=== PATIENT | male | born 1990 | race Caucasian/White ===

== ENCOUNTER 2023-11-21 09:05 | Emergency (ER) | payer BC, SELFPAY ==
[2023-11-21 09:15] VITALS: BP 112/76; PULSE 71; RESP 14; TEMP 36.9; O2SAT 98; BMI 21.3
--- NOTE | 2023-11-21 09:32 | ED_ITS ---
HPI - General Adult General Time Seen by Provider: 09:32 Date Seen: 11/21/23 Chief complaint: Unspecified Complaint, Adult Stated complaint: Rabies shots Time Seen by Provider: 11/21/23 09:31 Source: patient, RN notes reviewed and old records reviewed Mode of arrival: ambulatory Limitations: no limitations History of Present Illness HPI narrative: 33-year-old male who comes in today with concern for possible bat exposure. Family found bat in the house, spouse has been getting rabies shots and patient is here for evaluation. He has no symptoms, no previous for evaluation for rabies and no prior injections. Related Data Home Medications Medication Instructions Recorded Confirmed No Known Home Medications 11/21/23 Allergies Allergy/AdvReac Type Severity Reaction Status Date / Time No Known Allergies Allergy Verified 09/17/23 09:48 [facility] Medical History (Updated 11/21/23 @ 09:42 by Chay Santizo MD) Cough ?R05.9 - Cough, unspecified (ICD-10) Social History Smoking Status: Never smoker Exam Narrative: Exam Narrative: General: well nourished , NAD Head: Atraumatic and normocephalic ENT: External ears and external nose are normal Eyes: Conjunctiva clear, pupils are equal reactive, external ocular motions are intact Neck: Full spontaneous range of motion of the neck Lungs: No respiratory distress Musculoskeletal: No tenderness or deformity Neurologic: No gross focal neurologic deficits Skin: No rashes Psych: Mood and affect are appropriate Const: Vital Signs, click to edit/add: Vital Signs - 24 hr 11/21/23 09:15 Temperature 98.5 F Pulse Rate [Pulse Oximeter] 71 Respiratory Rate 14 Blood Pressure [Ri ght Upper Arm] 112/76 Pulse Oximetry 98 Oxygen Delivery Me thod Room Air Course Course ED Course: Patient seen and examined, prior records reviewed. Patient with possible bat exposure home, spouse had a bite and is getting rabies shots. Patient will be given rabies vaccine series Vital Signs Vital signs: Initial Vital Signs Temperature 98.5 F 11/21/23 09:15 Temperature Source Temporal Artery Scan 11/21/23 09:15 Pulse Rate 71 11/21/23 09:15 Pulse Rhythm Regular 11/21/23 09:15 Respiratory Rate 14 11/21/23 09:15 Blood Pressure 112/76 11/21/23 09:15 Blood Pressure Mean 88 11/21/23 09:15 Blood Pressure Position Sitting 11/21/23 09:15 Pulse Oximetry 98 11/21/23 09:15 Oxygen Delivery Method Room Air 11/21/23 09:15 Vital Signs Temperature 98.5 F 11/21/23 09:15 Pulse Rate 71 11/21/23 09:15 Respiratory Rate 14 11/21/23 09:15 Blood Pressure 112/76 11/21/23 09:15 Pulse Oximetry 98 11/21/23 09:15 Oxygen Delivery Method Room Air 11/21/23 09:15 Temperature 98.5 F 11/21/23 09:15 Pulse Rate 71 11/21/23 09:15 Respiratory Rate 14 11/21/23 09:15 Blood Pressure 112/76 11/21/23 09:15 Pulse Oximetry 98 11/21/23 09:15 Oxygen Delivery Method Room Air 11/21/23 09:15 Discharge Plan Discharge Clinical Impression: Need for prophylactic vaccination against rabies Patient Disposition: Home, Self-Care Condition: Stable Instructions: Rabies Vaccine (By injection) Additional Instructions: Day 0 November 20 Day 3 November 23 Day 7 November 27 Day December 04 Activity Level: Activity as Tolerated Discharge Diet: Regular Prescriptions: No Action No Known Home Medications Follow Up/Referrals: Eric Miller MD [Primary Care Provider] - Stand Alone Forms: [facility] Info Instructions
== END 2023-11-21 10:17 | disposition home or self-care (01) ==
PROVIDERS: Emergency Provider Family Medicine; PCP Family Medicine
DX: Z20.3 Contact with and (suspected) exposure to rabies (principal)
CPT/HCPCS: 90471; 90675; 96372; 99282; 99283

== ENCOUNTER → 2023-11-28 16:20 | Outpatient (RCR) | payer BC, SELFPAY ==
[2023-11-24 17:38] VITALS: BP 118/77; RESP 16; TEMP 37.2; O2SAT 97
--- NOTE | 2023-11-24 20:40 | ED.GENADULT ---
HPI - General Adult General Chief complaint: ED Outpatient Stated complaint: rabies shot follow up Time Seen by Provider: 11/24/23 17:37 History of Present Illness HPI narrative: This gentleman presented to the ER triage today on 11/23 for a follow-up rabies shot. He received a shot from nursing. He was not seen by me or medical provider. No ER physician charge. Related Data Home Medications Medication Instructions Recorded Confirmed No Known Home Medications 11/21/23 Allergies Allergy/AdvReac Type Severity Reaction Status Date / Time No Known Allergies Allergy Verified 09/17/23 09:48 PFSH [facility] Medical History (Updated 11/21/23 @ 09:42 by Chay Santizo MD) Cough ?R05.9 - Cough, unspecified (ICD-10) Social History Smoking Status: Never smoker Exam Const: Vital Signs, click to edit/add: Vital Signs - 24 hr 11/24/23 17:38 Temperature 99.0 F Respiratory Rate 16 Blood Pressure [Ri ght Upper Arm] 118/77 Pulse Oximetry 97 Oxygen Delivery Me thod Room Air Course Vital Signs Vital signs: Initial Vital Signs Temperature 99.0 F 11/24/23 17:38 Temperature Source Temporal Artery Scan 11/24/23 17:38 Respiratory Rate 16 11/24/23 17:38 Respiratory Effort Normal 11/24/23 17:38 Respiratory Depth Normal 11/24/23 17:38 Respiratory Pattern Normal 11/24/23 17:38 Blood Pressure 118/77 11/24/23 17:38 Blood Pressure Mean 90 11/24/23 17:38 Blood Pressure Position Sitting 11/24/23 17:38 Pulse Oximetry 97 11/24/23 17:38 Oxygen Delivery Method Room Air 11/24/23 17:38 Vital Signs Temperature 99.0 F 11/24/23 17:38 Respiratory Rate 16 11/24/23 17:38 Blood Pressure 118/77 11/24/23 17:38 Pulse Oximetry 97 11/24/23 17:38 Oxygen Delivery Method Room Air 11/24/23 17:38 Temperature 99.0 F 11/24/23 17:38 Respiratory Rate 16 11/24/23 17:38 Blood Pressure 118/77 11/24/23 17:38 Pulse Oximetry 97 11/24/23 17:38 Oxygen Delivery Method Room Air 11/24/23 17:38 Medications Administered Medications: Discontinued Medications Generic Name Dose Route Start Last Admin Trade Name Melchorq PRN Reason Stop Dose Admin Rabies Vaccine 2.5 unit 11/24/23 17:30 11/24/23 17:42 Rabies Vaccine 2.5 Unit/Ml Syringe IM 11/24/23 17:31 2.5 unit .ONCE ONE Administration Discharge Plan Departure Take Home Meds: No Action No Known Home Medications
[2023-11-28 15:30] VITALS: BP 102/67; PULSE 73; RESP 16; TEMP 36.9; O2SAT 97
[2023-12-05 17:52] VITALS: BP 107/69; PULSE 66; RESP 18; TEMP 36.4; O2SAT 98
== END | disposition home or self-care (01) ==
LOC: EDOUT 11-24 17:17
PROVIDERS: PCP Family Medicine; Visit Provider Family Medicine
DX: Z20.3 Contact with and (suspected) exposure to rabies (principal); Z23 Encounter for immunization
CPT/HCPCS: 80307; 90675; 96372; 99281